=== PATIENT | female | born 1990 | race Caucasian/White ===

== ENCOUNTER 2019-04-05 19:09 | Emergency (ER) | payer OTHER ==
[~2019-04-05] VITALS: Ht 160 cm; Wt 56.7 kg
[2019-04-05] MEDS ORDERED: NKM (19:15)
--- NOTE | 2019-04-05 19:18 | NUR ---
ED Nurse Note: pt walked in c/o lac on left thumb, pt reports she accidentally cut herself at work. noted small bleeding, will cont monitor. provider at the bedside.
[2019-04-05 19:19] VITALS: BP 119/70
[2019-04-05] MEDS ORDERED: Bacitracin Oint UD TOPIC ONE (19:30)
[2019-04-05] MEDS ORDERED: Tetanus/Diptheria/Pertussis IM ONE (19:30)
[2019-04-05] MEDS ORDERED: Lidocaine 1% MPF 10mg/ml 5ml INJ ONE (19:30)
[2019-04-05] MEDS ORDERED: BACITRACIN15 GM TOPIC (20:43)
[2019-04-05] MEDS ORDERED: IBUPROFEN600 MG ORAL (20:43)
[2019-04-05 20:51] VITALS: BP 119/70
--- NOTE | 2019-04-05 20:51 | NUR ---
ED Nurse Note: PT CLEARED TO BE D/C PER ERMD, PT DISCHARGE AND AFTERCARE INSTRUCTION PROVIDED W/ PRESCRIPTION, PT EDUCATION DONE VIA DISCUSSION AND HANDOUT, PT ADVISED TO FOLLOW UP WITH PCP OR RETURN TO ED IF CHANGES IN CONDITION, VSS, AMBULATORY W/ STEADY GAIT, ACCOMPANIED BY BOYFRIEND LEFT W/ ALL BELONGINGS.
--- NOTE | 2019-04-05 21:58 | Emergency Room Report ---
History of Present Illness General Chief Complaint: Laceration Source: Patient Present Illness HPI Patient is a 28-year-old female presenting for left thumb laceration which occurred at work today. She states that she was using a second hand paper machine which slipped and cut the left thumb. She is right-hand dominant. It is a 5 out of 10 dull ache and does not radiate. Worse with touch and movement. Last tetanus shot is unknown. She denies any other injury or symptoms including numbness/tingling Allergies: Coded Allergies: No Known Allergies (Unverified , 04/05/19) Patient History Past Medical History: see triage record Pertinent Family History: none Last Menstrual Period: currently on it Now: No Reviewed Nursing Documentation: PMH: Agreed; PSxH: Agreed Nursing Documentation-PMH Past Medical History: No Stated History Review of Systems All Other Systems: negative except mentioned in HPI Physical Exam Vital Signs Date Time Temp Pulse Resp B/P (MAP) Pulse Ox O2 Delivery O2 Flow Rate FiO2 04/05/19 19:14 98.4 74 18 119/70 (86) 97 Room Air Sp02 EP Interpretation: reviewed, normal General Appearance: no apparent distress, alert, GCS 15, non-toxic Head: normocephalic, atraumatic Eyes: bilateral eye normal inspection, bilateral eye PERRL Musculoskeletal: back normal, gait/station normal, normal range of motion, tender - distal L thumb Neurologic: alert, oriented x3, responsive, motor strength/tone normal, sensory intact, speech normal Psychiatric: judgement/insight normal, memory normal, mood/affect normal, no suicidal/homicidal ideation Skin: laceration - L thumb distal through nail. Linear Lymphatic: no adenopathy Procedures Laceration/Wound Repair Laceration/Wound Repair : Consent: Verbal Wound Location: upper extremity Wound's Depth, Shape: into muscle, linear, other - partially through nail Wound Length (cm): 2 Wound Explored: clean Irrigated w/ Saline (ccs): 50 Betadine Prep?: Yes Anesthesia: 1% Lidocaine Volume Anesthetic (ccs): 4 Wound Debrided: minimal Wound Repaired With: sutures Suture Size/Type: 6:0, other - gut Number of Sutures: 5 Layer Closure?: No Sterile Dressing Applied?: Yes Splint Applied?: No Sling Applied?: No Patient Tolerated: Well Complications: None Medical Decision Making PA Attestation Dr. Hill is my supervising physician. Patient management was discussed with my supervising physician Diagnostic Impression: Primary Impression: Thumb laceration Qualified Codes: S61.112A - Laceration without foreign body of left thumb with damage to nail, initial encounter ER Course Patient is a 28-year-old female presenting for left thumb laceration which occurred at work today Ddx considered include but not limited to laceration, fracture, tendon/ligament injury, avulsion, nerve damage PE: vitals stable. NAD L hand: linear laceration to distal thumb through nail with partial avulsion. No active bleeding. SILT. Full AROM intact L hand xray shows no fracture The wound was irrigated with normal saline and cleaned with betadine. A 27g needle was used to administer 4mL of lidocaine w/o epi for local anaesthesia. 5 sutures were placed with 6-0 chromic gut. The wound was well approximated and the patient tolerated the procedure well. The wound was then cleaned and bacitracin was applied. Pt dc'ed home with ER precautions. Suture care discussed. F/u with PCP and workers comp as discussed. Other X-Ray Diagnostic Results Other X-Ray Diagnostic Results : X-Ray ordered: L hand # of Views/Limited Vs Complete: 3 View, Complete Indication: Pain EP Interpretation: Yes PA Xray: Interpretation reviewed, by supervising MD, and agrees with findings. Interpretation: no dislocation, no soft tissue swelling, no fractures Impression: No acute disease Electronically Signed by: Jc Nina PA-C Last Vital Signs Date Time Temp Pulse Resp B/P (MAP) Pulse Ox O2 Delivery O2 Flow Rate FiO2 04/05/19 20:51 98.4 72 18 119/70 97 Room Air Status: improved Disposition: HOME, SELF-CARE Condition: Improved Scripts Bacitracin (Bacitracin) 28.4 Gm Oint...g. 1 APPLIC TOPIC THREE TIMES A DAY, #28 GM Prov: JC NINA P.A. 04/05/19 Ibuprofen* (MOTRIN*) 600 Mg Tablet 600 MG ORAL Q8H PRN for For Pain, #30 TAB 0 Refills Prov: JC NINA P.A. 04/05/19 Patient Instructions: Laceration Care, Adult, Sutured Wound Care Additional Instructions: I discussed my findings with the patient. All questions and concerns have been answered. Treatment and medication compliance have been addressed. I advised the patient that they need to follow up withprimary care in 3 days for wound check. If you are unable to see PMD, return to the ER in 3 days. Return to ER if pain remains or worsens, you notice discharge from the wound, the wound continues to bleed, the suture/s fall out within one week, you notice a fever or chills, or for any reason. Patient is advised to keep the wound clean and apply an antibacterial ointment. Patient verbalized understanding of discharge instructions. JC NINA Apr 05, 2019 21:58
--- NOTE | 2019-04-06 12:48 | Diagnostic Imaging Report ---
Indication: Left thumb pain Technique: 3 views left hand Comparison: none Findings: No acute fracture. No dislocation. The joint spaces are preserved. Impression: Negative
== END 2019-04-05 20:51 | disposition home or self-care (01) ==
LOC: EMR 19:25
DX: S61.112A Laceration without foreign body of left thumb with damage to nail, initial encounter (principal); Z23 Encounter for immunization; W45.8XXA Other foreign body or object entering through skin, initial encounter; Y93.9 Activity, unspecified; Y92.9 Unspecified place or not applicable; Y99.0 Civilian activity done for income or pay
CPT/HCPCS: 90471; 90715; 99283